=== PATIENT | female | born 1985 | race Caucasian/White ===

== ENCOUNTER 2019-02-28 09:04 | Emergency (ER) | payer BC ==
--- NOTE | 2019-02-28 09:22 | EDM.PDOC ---
ED HPI GENERAL MEDICAL PROBLEM - General Chief Complaint: Lower Extremity Injury/Pain Stated Complaint: HURT RT ANKLE Time Seen by Provider: 02/28/19 09:07 Source of Information: Reports: Patient History Limitations: Reports: No Limitations - History of Present Illness INITIAL COMMENTS - FREE TEXT/NARRATIVE: Patient presents this AM with complaints of right ankle pain. Was dancing last night and rolled it while wearing heels. She woke up this morning and is unable to put a lot of weight on it. She has not taken any OTC medications or applied ice. No other complaints. No prior medical history. No daily medications. Has IUD. Onset Date: 02/27/19 Duration: Getting Worse Location: Reports: Lower Extremity, Right Severity: Moderate Worsens with: Reports: Movement Associated Symptoms: Reports: No Other Symptoms - Related Data Allergies Allergy/AdvReac Type Severity Reaction Status Date / Time amoxicillin [From Augmentin] Allergy Vomiting Verified 02/28/19 09:16 clavulanic acid Allergy Vomiting Verified 02/28/19 09:16 [From Augmentin] Home Meds: Home Meds Levonorgestrel-Ethin Estradiol [Enpresse-28 Tablet] 1 tab PO DAILY 02/28/19 [ History] Review of Systems - Review of Systems Review Of Systems: See Below Constitutional: Reports: No Symptoms Eyes: Reports: No Symptoms Ears: Reports: No Symptoms Nose: Reports: No Symptoms Mouth/Throat: Reports: No Symptoms Respiratory: Reports: No Symptoms Cardiovascular: Reports: No Symptoms GI/Abdominal: Reports: No Symptoms Genitourinary: Reports: No Symptoms Musculoskeletal: Reports: Foot Pain (right foot/ankle pain, swelling) Skin: Reports: No Symptoms Neurological: Reports: No Symptoms Psychiatric: Reports: No Symptoms ED EXAM, GENERAL - Physical Exam Exam: See Below Exam Limited By: No Limitations General Appearance: Alert, WD/WN, Mild Distress Eye Exam: Bilateral Eye: EOMI, Nystagmus Respiratory/Chest: No Respiratory Distress, Lungs Clear, Normal Breath Sounds, No Accessory Muscle Use, Chest Non-Tender Cardiovascular: Normal Peripheral Pulses, Regular Rate, Rhythm, No Edema, No Gallop, No JVD, No Murmur, No Rub GI/Abdominal: Normal Bowel Sounds, Soft, Non-Tender, No Organomegaly, No Distention, No Abnormal Bruit, No Mass Extremities: Normal Capillary Refill, Joint Swelling, Leg Pain, Limited Range of Motion, Other (right ankle/foot shows slight swelling to lateral malleolus, limited ROM, no ecchymosis) Neurological: Alert, Oriented, CN II-XII Intact, Normal Cognition, Normal Gait, Normal Reflexes, No Motor/Sensory Deficits Psychiatric: Normal Affect, Normal Mood Skin Exam: Warm, Dry, Intact, Normal Color, No Rash Course - Orders/Labs/Meds Orders: Active Orders 24 hr Category Date Time Status Ankle Min 3V Rt [CR] Stat Exams 02/28/19 09:07 Ordered - Radiology Interpretation Free Text/Narrative:: X-ray of right ankle no acute fracture Departure - Departure Time of Disposition: 10:15 Disposition: Home, Self-Care 01 Condition: Good Clinical Impression: Right ankle sprain - Discharge Information *PRESCRIPTION DRUG MONITORING PROGRAM REVIEWED*: Not Applicable *COPY OF PRESCRIPTION DRUG MONITORING REPORT IN PATIENT BILL: Not Applicable Instructions: Ankle Sprain, [id number], Ankle Exercises-SportsMed, Elastic Bandage and RICE, Crutch Use, Adult, [id number] Forms: ED Department Discharge Additional Instructions: Plan 1. RICE - rest, elevate your ankle, apply ice for 20-30 minutes(not in direct contact to skin), compression 2. Try not to put weight on it 3. Alternate tylenol and ibuprofen to reduce swelling and pain 4. If not better in 5-7 days, recommend visit with primary care provider to schedule an MRI to determine any tendon or ligament involvement 5. Please call with any further questions or concerns - Problem List & Annotations (1) Right ankle sprain SNOMED Code(s): 45248200 Code(s): S93.401A - SPRAIN OF UNSPECIFIED LIGAMENT OF RIGHT ANKLE, INIT ENCNTR Status: Acute Priority: Medium Current Visit: Yes Qualifiers: Encounter type: initial encounter Involved ligament of ankle: unspecified ligament Qualified Code(s): S93.401A - Sprain of unspecified ligament of right ankle, initial encounter - Problem List Review Problem List Initiated/Reviewed/Updated: Yes - My Orders Last 24 Hours: My Active Orders 02/28/19 09:07 Ankle Min 3V Rt [CR] Stat - Assessment/Plan Last 24 Hours: My Active Orders 02/28/19 09:07 Ankle Min 3V Rt [CR] Stat Assessment:: right ankle sprain Plan: Plan 1. RICE - rest, elevate your ankle, apply ice for 20-30 minutes(not in direct contact to skin), compression 2. Try not to put weight on it 3. Alternate tylenol and ibuprofen to reduce swelling and pain 4. If not better in 5-7 days, recommend visit with primary care provider to schedule an MRI to determine any tendon or ligament involvement 5. Please call with any further questions or concerns
--- NOTE | 2019-02-28 09:47 | CR ---
[id number] RAD/RAD Ankle Right 3V Min EXAM: 3 VIEWS RIGHT ANKLE. INDICATION: ROLLED ANKLE COMPARISON: None. DISCUSSION: No fracture, dislocation or other acute osseous abnormality. Small right ankle joint effusion. IMPRESSION: 1. No acute osseous abnormalities. Mason Portillo DO 02/28/19 0946 Thank you for allowing us to participate in the care of your patient.
== END 2019-02-28 10:05 | disposition home or self-care (01) ==
LOC: VM.ED 09:04
DX: S93.401A Sprain of unspecified ligament of right ankle, initial encounter (principal); Z88.1 Allergy status to other antibiotic agents; X50.1XXA Overexertion from prolonged static or awkward postures, initial encounter; Y93.41 Activity, dancing
CPT/HCPCS: 73610-RT; 99283-25